=== PATIENT | female | born 1995 | race Caucasian/White ===

== ENCOUNTER 2016-07-19 22:39 | Emergency (ER) | payer MEDICAID ==
[2016-07-19 22:57] VITALS: TEMP 98.5; BMI 23.1
[2016-07-19] MEDS ORDERED: OXYCODONE HCL 5 MG TABLET PO ONE (23:11)
--- NOTE | 2016-07-19 23:11 | EDPRACDOC ---
- General Information Chief Complaint: Back Pain Stated Complaint: BACK PAIN/VOMITING Time Seen by Provider: 07/19/16 23:05 Information Source: Patient Mode Of Arrival: Car Home Medications: Home Medications Hydrocodone Bit/Homatropine [Hycodan Syrup] 5 ml PO Q6 PRN #120 syrup 10/01/14 Cephalexin Monohydrate [Keflex] 500 mg PO Q6H #20 cap 07/19/16 Oxycodone Immediate Release [Oxy-Ir] 5 mg PO Q6H PRN #15 tab 07/19/16 Phenazopyridine HCl [Pyridium] 200 mg PO TID #6 tablet 07/19/16 Allergies/Adverse Reactions: Allergies Allergy/AdvReac Type Severity Reaction Status Date / Time hydrocodone Allergy Rash-Genera Verified 07/19/16 23:09 lized - History of Present Illness Onset: 3 days HPI: PT COMPLAINS OF SEVERE, SHARP PAIN ACROSS LOWER BACK, LOWER ABD PAIN, PAIN WITH URINATION, URINARY FREQUENCY AND URGENCY, N/V, NO FEVER OR CHILLS, USING TYLENOL AND MOTRIN WITHOUT RELIEF. PT DENIES ANY KNOWN INJURY, STATES SYMPTOMS WORSENING OVER THE LAST 3 DAYS. Pain Location: Reports: Bilateral, Lower, Lumbar Pain Radiates To: Reports: None Pain Caused By: Reports: Spontaneous Circumstances: Reports: Unknown Relevant History: Reports: None Pain Severity: Reports: Severe Pain Quality: Reports: Sharp, Stabbing Worsened By: Reports: Breathing, Movement, Twisting, Walking Associated Signs and Symptoms: Reports: Abdominal Pain, Dysuria, Nausea, Vomiting. Denies: Hematuria ED Past Medical History - History Reviewed Yes Nurses notes reviewed and agree except as marked No Past Medical History: Yes Patient has no past medical history - Patient Medical History Psychological History: Denies: Depression Surgical History: Denies: Hysterectomy - Social Medical History Smoking Status: Heavy tobacco smoker (5 or more cigarettes/day or daily pipe/ cigar) ETOH: Social Substance Abuse: None EDM Review of Systems - Review of Systems Constitutional: negative: Chills, Fever, Fatigue, Weakness Eyes: negative: Blurred Vision, Double Vision Ears: negative: Drainage Throat: negative: Pain Nose: negative: Congestion, Discharge Respiratory: negative: Cough, Shortness of Breath, Wheezing Cardiovascular: negative: Chest Pain, Palpitations Gastrointestinal: Nausea, Pain, Vomiting. negative: Diarrhea Genitourinary: Dysuria, Frequency, Urgency to urinate Neurological: negative: Dizziness, Headache, Numbness, Weakness Musculoskeletal: Back Integumentary: No Symptoms Reported - Physical Exam Constitutional: Alert (Awake), No apparent distress Oriented to: Time, Person, Place Last recorded Vital Signs: Last Vital Signs Temp 98.5 F 07/19/16 22:53 Pulse 85 07/19/16 22:53 Resp 20 07/19/16 22:53 BP 151/96 07/19/16 22:53 Pulse Ox 95 07/19/16 22:53 Oxygen Pulse Oxygen Saturation 95 O2 Device Room Air Oxygen Flow Rate Fraction of Inspired Oxygen ( FIO2) - HEENT Head: Normal ( normocephalic) Eye Exam: Normal (PERRL, EOMI, Sclera white) Oropharynx: Normal (Pharynx:Moist without exudate,Gums-no swelling) Tympanic Membrane: Normal ENT EAC: Normal TMJ: Normal Nose: No Symptoms Reported (septum midline) Neck: Normal (FROM, trachea at midline) - Respiratory/Cardiovascular Respiratory: Normal - CTA (BBS clear to auscultation without adventitious sounds ) Cardiovascular: Normal (RRR without murmur, gallop or rub) - GI Auscultation: Normal (NABS) Palpation: Normal (Soft,No rebound or guarding, non distended) Tenderness: Non tender Knight's Sign: Negative - Musculoskeletal Back: Normal (Non-Tender) Extremities: Normal (Normal tone, Pulses 2+ No cyanosis or edema, FROM) - Integumentary Skin: Normal, Warm, Dry Lymphatics: Normal (no adenopathy) - Neurologic Memory Impaired: Normal Motor Function: Normal (Normal tone, Pulses 2+ No cyanosis or edema, FROM) Cranial Nerve: Normal (CN II-X11 intact sensation, strength 5/5) Cerebellar: Normal Mood Description: Normal Perception: Normal ED Back Exam - Neurologic Motor Deficit: None - Musculoskeletal Cervical: Normal Thoracic: Normal Lumbar: Tender Midline: Tender Paraspinous: Tender Straight Leg Raise: Negative Pelvis: Normal - Differential Diagnosis Pyelonephritis, Urolithiasis, Urinary tract infection - Results 07/19/16 23:48 Laboratory Results - last 24 hr 07/19/16 07/19/16 22:58 22:58 Urine Color Dark yellow Urine Clarity Cldy Urine pH 6.0 Ur Specific [place] 1.015 Urine Protein 1+ H Urine Glucose (UA) Neg Urine Ketones Neg Urine Occult Blood 1+ H Urine Nitrite Pos H Urine Bilirubin Neg Urine Urobilinogen 8 H Ur Leukocyte Esterase 2+ H Urine RBC 20-30 H Urine WBC Tntc H Urine WBC Clumps Present H Ur Epithelial Cells 2+ Urine Bacteria 2+ H Urine Mucus Occ Urine Test Neg Decision Time to Discharge: 23:49 - Departure Disposition: Home Condition: Stable Final Diagnosis: UTI (urinary tract infection) Qualifiers: Urinary tract infection type: acute cystitis Hematuria presence: without hematuria Qualified Code(s): N30.00 - Acute cystitis without hematuria Low back pain Qualifiers: Chronicity: acute Back pain laterality: bilateral Sciatica presence: without sciatica Qualified Code(s): M54.5 - Low back pain Instructions: Urinary Tract Infection in Women (ED) Education/Counseling Given To: Patient Education/Counseling Given Regarding: Diagnosis, Treatment, Prognosis, Follow Up Referrals: Shadia Reis MD [Primary Care Provider] - One Week Prescriptions: Cephalexin Monohydrate [Keflex] 500 mg PO Q6H #20 cap Oxycodone Immediate Release [Oxy-Ir] 5 mg PO Q6H PRN #15 tab PRN Reason: Pain Phenazopyridine HCl [Pyridium] 200 mg PO TID #6 tablet Additional Instructions: REST, DRINK LOTS OF FLUIDS, RETURN TO THE ED FOR ANY WORSENING SYMPTOMS OR CONCERNS.
[2016-07-19 23:15] LABS: LEUKOCYTES/URINE 2+ (NEGATIVE); RBC/URINE 20-30 (0-5); URINE OCCULT BLOOD 1+ (NEG/TRACE); WBC/URINE TNTC (0-5)
[2016-07-19 23:20] LABS: NITRITE/URINE POS (NEGATIVE)
[2016-07-19] MEDS ORDERED: CEFTRIAXONE 1 GM VIAL IM ONE (23:26)
[2016-07-20 00:25] VITALS: BP 149/82; PULSE 88
== END 2016-07-20 00:12 | disposition home or self-care (01) ==
LOC: ED 22:39
DX: N30.00 Acute cystitis without hematuria (principal); M54.5 Low back pain
CPT/HCPCS: 81001; 81025; 96372; 99283; J0696; J3490